=== PATIENT | male | born 1995 | race Caucasian/White ===

== ENCOUNTER 2017-06-08 12:26 | Emergency (ER) | payer OTHER | END 2017-06-08 13:20 | disposition home or self-care (01) | LOC: FTE 12:26 → E/R 13:20 | DX: K08.89 Other specified disorders of teeth and supporting structures (principal) | CPT/HCPCS: 99284; Z7502 ==

== ENCOUNTER 2019-01-03 14:32 | Emergency (ER) | payer SELFPAY, OTHER ==
[2019-01-03] MEDS: IBUPROFEN 600 MG TAB PO (15:40)
== END 2019-01-03 16:46 | disposition home or self-care (01) ==
LOC: FTE 16:46
DX: S20.212A Contusion of left front wall of thorax, initial encounter (principal); X58.XXXA Exposure to other specified factors, initial encounter; Y92.9 Unspecified place or not applicable
CPT/HCPCS: 71045; 71100; 99283-25